=== PATIENT | male | born 1950 | race Caucasian/White ===

== ENCOUNTER → 2020-12-23 | Outpatient (CLI) | payer BC ==
--- NOTE | 2020-12-23 12:09 | Diagnostic Imaging Report ---
PROCEDURE: CT abdomen and pelvis without contrast. TECHNIQUE: Multiple contiguous axial images were obtained through the abdomen and pelvis without the use of intravenous contrast. Auto Exposure Controls were utilized during the CT exam to meet ALARA standards for radiation dose reduction. INDICATION: Prostate cancer, new diagnosis. I have no previous. There is no suspicious sclerotic or lytic bony lesion. There is no abdominal pelvic retroperitoneal or mesenteric lymphadenopathy. Seminal vesicles unremarkable. No pelvic sidewall or periprostatic lymphadenopathy. Ileo-inguinal lymph node chains unremarkable. The bladder was not pathologically distended. There is no hydroureteronephrosis. There is an exophytic cyst off the lower pole of the right kidney at nonenhanced CT it showed no evidence for complexity and measures 5.9 cm in diameter. There is a minute exophytic fluid attenuating nodule a likely cyst off the upper pole the left kidney posteriorly of about 6 to 7 mm. There is a tiny punctate echogenic focus along the dependent gallbladder wall likely a tiny 2 mm stone. No secondary findings of cholecystitis. The bile ducts are nondilated. The unopacified liver normal. Spleen, adrenals and pancreas negative. The aorta is nonaneurysmal. There is no bowel, biliary or urinary tract obstruction. IMPRESSION: No findings at this exam suggestive of soft tissue or osseous metastatic disease. A probable cholelithiasis and bilateral renal cysts. Dictated by: Dictated on workstation # [id number]
--- NOTE | 2020-12-23 15:24 | Diagnostic Imaging Report ---
INDICATION: Prostate carcinoma. TECHNIQUE: Patient was administered 24.2 mCi technetium 99m MDP intravenously and whole-body imaging was performed after a 3 hour delay. COMPARISON: No prior studies are available for comparison. There is normal uptake of activity by the axial and appendicular skeleton. There is uptake by the kidneys with excretion to the urinary bladder. No suspicious foci are identified to suggest osseous metastatic disease. IMPRESSION: No scintigraphic evidence of osseous metastatic disease. Dictated by: Dictated on workstation # [id number]
== END ==
LOC: CARD 11:00
PROVIDERS: ATTEND Urology
DX: C61 Malignant neoplasm of prostate (principal)
CPT/HCPCS: 74176; 78306; A9503

== ENCOUNTER 2021-01-03 11:31 | Outpatient (RCR) | payer BC | END 2021-04-03 | disposition home or self-care (01) | LOC: ONC 11:31 | PROVIDERS: ATTEND Radiology Radiation Oncology | DX: C61 Malignant neoplasm of prostate (principal); K21.9 Gastro-esophageal reflux disease without esophagitis; E78.00 Pure hypercholesterolemia, unspecified | CPT/HCPCS: 99204 ==